=== PATIENT | female | born 1980 | race Caucasian/White ===

== ENCOUNTER 2017-02-10 08:02 | Emergency (ER) | payer BC ==
[~2017-02-10] VITALS: Ht 170.2 cm; Wt 104.9 kg
[~2017-02-10 08:02] MED LIST: BENADRYL A12.5 MG/5 PO; BUTISOL SODIUM30 MG PO; CEFUROXIME500 MG; DICLEGIS DR 101 EACH PO; FLAGYL500 MG PO; FLUTICASONE PRO16 GM; GLYBURIDE2.5 MG PO; GLYBURIDE5 MG PO; IBUPROFEN800 MG; IBUPROFEN800 MG PO; KETOROLAC TROME10 MG PO; MAXALT5 MG PO; METRONIDAZOLE500 MG PO; Motrin PO; POTASSIUM-9999 MG PO; PRENATAL MULTI1 EAC5 PO; RIZATRIPTAN10 MG PO; TERCONAZOLE 0.8% CRE; TORADOL10 MG PO
[2017-02-10] MEDS ORDERED: LIDODERM 5% P1 PATCH TD (08:51)
[2017-02-10] MEDS ORDERED: TYLENOL EXTRA500 MG PO (08:51)
[2017-02-10 10:01] VITALS: BP 132/81
== END 2017-02-10 10:02 | disposition home or self-care (01) ==
LOC: EME 08:02
DX: O9A.211 Injury, poisoning and certain other consequences of external causes complicating pregnancy, first trimester (principal); S39.011A Strain of muscle, fascia and tendon of abdomen, initial encounter; M25.552 Pain in left hip; M54.9 Dorsalgia, unspecified; M79.605 Pain in left leg; X58.XXXA Exposure to other specified factors, initial encounter; O30.001 Twin pregnancy, unspecified number of placenta and unspecified number of amniotic sacs, first trimester; O09.521 Supervision of elderly multigravida, first trimester; Z3A.10 10 weeks gestation of pregnancy; Z86.32 Personal history of gestational diabetes; Z87.891 Personal history of nicotine dependence
CPT/HCPCS: 99281; 99284

== ENCOUNTER 2017-03-18 19:25 | Emergency (ER) | payer OTHER, BC ==
[~2017-03-18] VITALS: Ht 170.2 cm; Wt 104.7 kg
[~2017-03-18 19:25] MED LIST changes: +LIDODERM 5% P1 PATCH TD; +TYLENOL EXTRA500 MG PO
[2017-03-18 23:07] VITALS: BP 121/91
== END 2017-03-18 23:07 | disposition home or self-care (01) ==
LOC: EME 19:25 → RME 19:25
DX: S39.012A Strain of muscle, fascia and tendon of lower back, initial encounter (principal); M62.838 Other muscle spasm; Z33.1 Pregnant state, incidental; Z3A.14 14 weeks gestation of pregnancy; X50.9XXA Other and unspecified overexertion or strenuous movements or postures, initial encounter; Y93.F2 Activity, caregiving, lifting; Y99.0 Civilian activity done for income or pay; Z88.1 Allergy status to other antibiotic agents; Z88.5 Allergy status to narcotic agent
CPT/HCPCS: 76801; 76802; 99281; 99284

== ENCOUNTER 2017-04-22 10:25 | Outpatient (CLI) | payer OTHER, BC ==
[2017-04-22 11:04] VITALS: BP 114/67
[2017-04-22 13:52] VITALS: BP 114/68
== END 2017-04-22 15:10 | disposition home or self-care (01) ==
LOC: LDRP-OP 10:25 → 2WEST 10:26
DX: O99.89 Other specified diseases and conditions complicating pregnancy, childbirth and the puerperium (principal); R10.817 Generalized abdominal tenderness; W17.89XA Other fall from one level to another, initial encounter; Y93.E9 Activity, other interior property and clothing maintenance; Y92.002 Bathroom of unspecified non-institutional (private) residence as the place of occurrence of the external cause; O99.212 Obesity complicating pregnancy, second trimester; O30.032 Twin pregnancy, monochorionic/diamniotic, second trimester; O24.419 Gestational diabetes mellitus in pregnancy, unspecified control; O10.912 Unspecified pre-existing hypertension complicating pregnancy, second trimester; Z87.891 Personal history of nicotine dependence; E66.9 Obesity, unspecified; Z3A.19 19 weeks gestation of pregnancy
CPT/HCPCS: 59025; 76805; 76810; G0378

== ENCOUNTER 2017-05-15 17:35 | Outpatient (CLI) | payer BC, OTHER ==
[2017-05-15 18:08] VITALS: BP 112/70
== END 2017-05-15 22:00 | disposition home or self-care (01) ==
LOC: LDRP-OP → 2WEST 17:36 → LDRP-OP 10-18 15:27
DX: Z03.79 Encounter for other suspected maternal and fetal conditions ruled out (principal); V43.52XA Car driver injured in collision with other type car in traffic accident, initial encounter; Y92.481 Parking lot as the place of occurrence of the external cause; O30.032 Twin pregnancy, monochorionic/diamniotic, second trimester; O24.415 Gestational diabetes mellitus in pregnancy, controlled by oral hypoglycemic drugs; O99.212 Obesity complicating pregnancy, second trimester; E66.9 Obesity, unspecified; O09.522 Supervision of elderly multigravida, second trimester; O99.512 Diseases of the respiratory system complicating pregnancy, second trimester; J45.909 Unspecified asthma, uncomplicated; O99.89 Other specified diseases and conditions complicating pregnancy, childbirth and the puerperium; G89.29 Other chronic pain; M54.9 Dorsalgia, unspecified; Z3A.22 22 weeks gestation of pregnancy; Z86.19 Personal history of other infectious and parasitic diseases
CPT/HCPCS: 59025; 76805; 76810; G0378

== ENCOUNTER 2017-06-16 09:11 | Outpatient (CLI) | payer BC, OTHER ==
[2017-06-16 09:38] VITALS: BP 123/70
[2017-06-16 10:19] VITALS: BP 122/75
[2017-06-16 11:39] VITALS: BP 128/77
[2017-06-16 21:40] LABS: CANDIDA DNA PROBE NEGATIVE; GARDNERELLA DNA PROBE POSITIVE; TRICHOMONAS DNA PROBE NEGATIVE
== END 2017-06-16 14:25 | disposition home or self-care (01) ==
LOC: LDRP-OP 09:11 → 2WEST 09:12 → LDRP-OP 10-18 22:18
PROVIDERS: Advanced Practice Midwife
DX: O36.8122 Decreased fetal movements, second trimester, fetus 2 (principal); O30.032 Twin pregnancy, monochorionic/diamniotic, second trimester; O24.415 Gestational diabetes mellitus in pregnancy, controlled by oral hypoglycemic drugs; O09.522 Supervision of elderly multigravida, second trimester; Z3A.26 26 weeks gestation of pregnancy; O99.212 Obesity complicating pregnancy, second trimester; E66.9 Obesity, unspecified; Z68.35 Body mass index [BMI] 35.0-35.9, adult; O99.512 Diseases of the respiratory system complicating pregnancy, second trimester; J45.909 Unspecified asthma, uncomplicated; Z86.19 Personal history of other infectious and parasitic diseases
CPT/HCPCS: 59025; 76818; 82731; 87480; 87510; 87660; G0378

== ENCOUNTER 2017-07-15 11:58 | Outpatient (CLI) | payer BC, OTHER ==
[2017-07-15 12:27] VITALS: BP 145/87
[2017-07-15 12:39] VITALS: BP 116/74
[2017-07-15 13:12] LABS: APPEARANCE CLEAR ((CLEAR)); BILIRUBIN NEGATIVE; BLOOD NEGATIVE; COLOR STRAW ((YELLOW)); GLUCOSE (STRIP) NEGATIVE; KETONES 5; LEUKOCYTES NEGATIVE; NITRITE NEGATIVE; PROTEIN (STRIP) NEGATIVE; SPECIFIC GRAVITY 1.002 (1.000-1.030); UROBILINOGEN 0.2 MG/DL (0.2-1.0)
[2017-07-15 13:41] VITALS: BP 121/73
[2017-07-15 15:35] VITALS: BP 126/76
[2017-07-15] MEDS ORDERED: METFORMIN HCL500 MG PO (16:30)
[2017-07-15] MEDS ORDERED: GLYBURIDE2.5 MG PO (16:30)
== END 2017-07-15 16:48 | disposition home or self-care (01) ==
LOC: LDRP-OP 11:58 → 2WEST 11:59 → LDRP-OP 10-18 00:51
PROVIDERS: Obstetrics & Gynecology Obstetrics
DX: O36.8130 Decreased fetal movements, third trimester, not applicable or unspecified (principal); O30.033 Twin pregnancy, monochorionic/diamniotic, third trimester; O09.513 Supervision of elderly primigravida, third trimester; Z3A.30 30 weeks gestation of pregnancy
CPT/HCPCS: 59025; 76818; 81003; G0378

== ENCOUNTER 2017-08-08 15:17 | Outpatient (CLI) | payer BC, OTHER ==
[~2017-08-08 15:17] MED LIST changes: +METFORMIN HCL500 MG PO
[2017-08-08 15:41] VITALS: BP 117/77
[2017-08-08 16:10] VITALS: BP 120/72
[2017-08-08 16:42] LABS: BASOPHIL (%) 0.1 % (0-1); EOSINOPHIL (%) 0.3 % (0-5); HEMATOCRIT 33.6 % (36.0-46.0); HEMOGLOBIN 10.9 G/DL (11.9-15.5); IMMATURE GRANULOCYTE (%) 0.4 % (0.0-0.7); LYMPHOCYTE (%) 23.5 % (15-42); LYMPHOCYTE COUNT 2.2 K/uL (1.0-2.8); MCH 26.9 PG (29.0-34.0); MCHC 32.4 G/DL (30.0-36.0); MONOCYTE (%) 4.4 % (3-12); MONOCYTE COUNT 0.4 K/uL (0-0.8); NEUTROPHIL (%) 71.3 % (45-76); NEUTROPHIL COUNT 6.6 K/uL (1.8-6.4); PLATELET COUNT 204 K/uL (156-360); RBC DIS.WIDTH-CV 13.5 % (11.8-14.6); RBC DIS.WIDTH-SD 40.8 % (39-53); RED BLOOD COUNT 4.05 M/uL (3.80-5.20); WHITE BLOOD COUNT 9.2 K/uL (4.1-10.2)
[2017-08-08 17:10] LABS: ALBUMIN 3.1 G/DL (3.2-4.8); CHLORIDE 109 MEQ/L (99-109); POTASSIUM 3.9 MEQ/L (3.7-5.4); SODIUM 136 MEQ/L (136-147); TOTAL BILIRUBIN 0.4 MG/DL (0.0-1.0)
[2017-08-08 17:16] LABS: ALKALINE PHOSPHATASE 146 IU/L (3-129); ALT (GPT) 6 IU/L (3-49); AST (GOT) 13 IU/L (2-34); CREATININE 0.5 MG/DL (0.6-1.3); GFR ESTIMATE (CALCULATED) > 59 mL/min/; GLUCOSE 65 mg/dL (70-99); TOTAL PROTEIN 5.6 G/DL (6.4-8.3); UREA NITROGEN (BUN) 5 mg/dL (9-23)
[2017-08-08 17:19] LABS: UR CREATININE CONCENTRATION 18.1 MG/DL
== END 2017-08-08 18:10 | disposition home or self-care (01) ==
LOC: LDRP-OP 15:17 → 2WEST 15:19 → LDRP-OP 10-18 02:20
PROVIDERS: Obstetrics & Gynecology Obstetrics
DX: O99.89 Other specified diseases and conditions complicating pregnancy, childbirth and the puerperium (principal); R51 Headache; O24.913 Unspecified diabetes mellitus in pregnancy, third trimester; E11.9 Type 2 diabetes mellitus without complications; Z3A.34 34 weeks gestation of pregnancy
CPT/HCPCS: 59025; 80053; 82570; 82948; 84156; 85025; G0378

== ENCOUNTER 2017-08-10 10:52 | Inpatient (IN) | payer BC, OTHER ==
[2017-08-10] VITALS (17 sets, daily range): BP systolic 119–197; BP diastolic 72–123
[~2017-08-10] VITALS: Ht 170.2 cm; Wt 107.0 kg
[2017-08-10 11:51] LABS: HEMATOCRIT 33.7 % (36.0-46.0); HEMOGLOBIN 11.4 G/DL (11.9-15.5); MCH 27.9 PG (29.0-34.0); MCHC 33.8 G/DL (30.0-36.0); MCV 82.4 FL (83-99); PLATELET COUNT 201 K/uL (156-360); RBC DIS.WIDTH-CV 13.4 % (11.8-14.6); RBC DIS.WIDTH-SD 40.2 % (39-53); RED BLOOD COUNT 4.09 M/uL (3.80-5.20); WHITE BLOOD COUNT 10.8 K/uL (4.1-10.2)
[2017-08-10 12:03] LABS: ALBUMIN 3.2 g/dL (3.2-4.8); CHLORIDE 111 mEq/L (99-109); SODIUM 139 mEq/L (136-147)
[2017-08-10 12:06] LABS: GLUCOSE 71 mg/dL (70-99); TOTAL PROTEIN 5.7 g/dL (6.4-8.3)
[2017-08-10 12:07] LABS: TOTAL BILIRUBIN 0.5 mg/dL (0.0-1.0)
[2017-08-10 12:09] LABS: ALKALINE PHOSPHATASE 172 IU/L (3-129); CREATININE 0.6 mg/dL (0.6-1.3); GFR ESTIMATE (CALCULATED) > 59 mL/min/
[2017-08-10 12:11] LABS: AST (GOT) 13 IU/L (2-34); UREA NITROGEN (BUN) 4 mg/dL (9-23)
[2017-08-10 12:12] LABS: ALT (GPT) 6 IU/L (3-49)
[2017-08-10 12:41] LABS: UR CREATININE CONCENTRATION 197.2 MG/DL
[2017-08-10] MEDS ORDERED: GLYBURIDE-METF1 EAC1 PO (15:25)
[2017-08-10] MEDS ORDERED: FISH OIL 1,0001 EAC7 PO (15:26)
[2017-08-10] MEDS ORDERED: PRENATAL TABLE1 EAC3 PO (15:26)
[2017-08-10] MEDS ORDERED: ADULT ASPIRIN81 MG PO (15:27)
[2017-08-10] MEDS ORDERED: DIABETA5 MG PO (15:27)
[2017-08-10 20:04] LABS: UR CREATININE CONCENTRATION 39.8 MG/DL
[2017-08-11] VITALS (9 sets, daily range): BP systolic 116–146; BP diastolic 67–77
[2017-08-11 06:39] LABS: HEMATOCRIT 34.5 % (36.0-46.0); HEMOGLOBIN 11.2 G/DL (11.9-15.5); MCH 27.5 PG (29.0-34.0); MCHC 32.5 G/DL (30.0-36.0); MCV 84.8 FL (83-99); PLATELET COUNT 203 K/uL (156-360); RBC DIS.WIDTH-CV 13.8 % (11.8-14.6); RBC DIS.WIDTH-SD 42.3 % (39-53); RED BLOOD COUNT 4.07 M/uL (3.80-5.20); WHITE BLOOD COUNT 13.6 K/uL (4.1-10.2)
[2017-08-11 07:04] LABS: ALBUMIN 3.2 G/DL (3.2-4.8); ALKALINE PHOSPHATASE 153 IU/L (3-129); ALT (GPT) 6 IU/L (3-49); AST (GOT) 14 IU/L (2-34); CHLORIDE 106 MEQ/L (99-109); CREATININE 0.5 MG/DL (0.6-1.3); GFR ESTIMATE (CALCULATED) > 59 mL/min/; POTASSIUM 4.1 MEQ/L (3.7-5.4); SODIUM 135 MEQ/L (136-147); TOTAL PROTEIN 5.6 G/DL (6.4-8.3); UREA NITROGEN (BUN) 5 mg/dL (9-23)
[2017-08-11 07:10] LABS: GLUCOSE 99 mg/dL (70-99); TOTAL BILIRUBIN 0.7 MG/DL (0.0-1.0)
[2017-08-12 06:25] LABS: BASOPHIL (%) 0.2 % (0-1); EOSINOPHIL (%) 0 % (0-5); HEMATOCRIT 31.6 % (36.0-46.0); HEMOGLOBIN 10.2 G/DL (11.9-15.5); IMMATURE GRANULOCYTE (%) 1.4 % (0.0-0.7); LYMPHOCYTE (%) 10.3 % (15-42); LYMPHOCYTE COUNT 1.9 K/uL (1.0-2.8); MCH 27.2 PG (29.0-34.0); MCHC 32.3 G/DL (30.0-36.0); MCV 84.3 FL (83-99); MONOCYTE (%) 4.5 % (3-12); MONOCYTE COUNT 0.9 K/uL (0-0.8); NEUTROPHIL (%) 83.6 % (45-76); NEUTROPHIL COUNT 15.7 K/uL (1.8-6.4); PLATELET COUNT 226 K/uL (156-360); RBC DIS.WIDTH-CV 13.9 % (11.8-14.6); RBC DIS.WIDTH-SD 42.1 % (39-53); RED BLOOD COUNT 3.75 M/uL (3.80-5.20); WHITE BLOOD COUNT 18.8 K/uL (4.1-10.2)
[2017-08-12 07:00] VITALS: BP 122/75
[2017-08-12 11:44] VITALS: BP 122/84
[2017-08-12 16:42] VITALS: BP 138/77
[2017-08-12 19:15] VITALS: BP 137/81
[2017-08-12 22:47] VITALS: BP 119/74
[2017-08-13 05:20] VITALS: BP 120/82
[2017-08-13 06:54] VITALS: BP 127/75
[2017-08-14 03:20] VITALS: BP 128/74
[2017-08-14 10:03] VITALS: BP 130/81
[2017-08-14 16:16] VITALS: BP 124/76
[2017-08-15 09:00] VITALS: BP 141/72
[2017-08-15] MEDS ORDERED: OXYCODONE-APAP1 EACH PO (09:43)
[2017-08-15] MEDS ORDERED: IBUPROFEN800 MG PO (09:43)
[2017-08-15 11:55] VITALS: BP 152/82
[2017-08-15 13:40] VITALS: BP 154/81
[2017-08-15 15:14] VITALS: BP 135/79
== END 2017-08-15 18:00 | disposition home or self-care (01) | DRG 765 ==
LOC: LDRP-OP 10:52 → 2WEST 10:53 → LDRP-OP 10-18 19:39
PROVIDERS: Obstetrics & Gynecology; Obstetrics & Gynecology Obstetrics
DX: O13.4 Gestational [pregnancy-induced] hypertension without significant proteinuria, complicating childbirth (principal); O76 Abnormality in fetal heart rate and rhythm complicating labor and delivery; O32.1XX1 Maternal care for breech presentation, fetus 1; O32.2XX2 Maternal care for transverse and oblique lie, fetus 2; O30.033 Twin pregnancy, monochorionic/diamniotic, third trimester; Z30.2 Encounter for sterilization; O99.02 Anemia complicating childbirth; D62 Acute posthemorrhagic anemia; O24.425 Gestational diabetes mellitus in childbirth, controlled by oral hypoglycemic drugs; O99.52 Diseases of the respiratory system complicating childbirth; J45.909 Unspecified asthma, uncomplicated; O99.214 Obesity complicating childbirth; E66.9 Obesity, unspecified; Z68.35 Body mass index [BMI] 35.0-35.9, adult; Z79.82 Long term (current) use of aspirin; Z79.84 Long term (current) use of oral hypoglycemic drugs; Z88.5 Allergy status to narcotic agent; Z88.1 Allergy status to other antibiotic agents; Z91.012 Allergy to eggs; Z91.040 Latex allergy status; Z87.891 Personal history of nicotine dependence; Z3A.34 34 weeks gestation of pregnancy; Z37.2 Twins, both liveborn
CPT/HCPCS: 59025; 80053; 81050; 82570; 82948; 84156; 85025; 85027; 86850; 86900; 86901; 88302; C1776; G0378; J0690; J0702; J1170; J1815; J1885; J2250; J2405; J7040; J7120